=== PATIENT | male | born 1970 | race Caucasian/White ===

== ENCOUNTER 2019-03-12 10:57 | Emergency (ER) | payer OTHER ==
--- OUTSIDE RECORDS SUMMARY | 2019-03-12 11:12 | XMS REPORT | Continuity of Care Document ---
:1970 External Reference #:[id number] Author Name Nikko Solis DO MPH Address [facility], [address] [place] [address] Care Team Providers Name Role Phone Kt Shankar P.A. 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 Problems Description No Information Available Social History Type Date Description Comments Sex Unknown ETOH Use Consumes 1 beer per day Tobacco Use Start: Unknown Patient is a current smoker, smokes chew every day Recreational Drug Use Denies Drug Use Smoking Status Reviewed: 01/30/19 Patient is a current smoker, smokes chew every day Allergies, Adverse Reactions, Alerts Active Allergies Reaction Severity Comments Date Morphine And Related Urticaria 11/14/2016 Medications Active Medications SIG Qnty Indications Ordering Date Provider Oxycodone HCL si by mouth 90tabs Nikko Solis, 08/06/2018 10mg Tablets every 8 hours as BETO MICHELE directed chronic pain patient Meloxicam si by mouth Unknown 7.5mg Tablets every morning as directed chronic pain. take with food. Chlorpheniramine Maleate 1 by mouth every Unknown 4mg 4 hours as need Tablets Trazodone HCL si by mouth Unknown 100mg Tablets every night at bedtime as directed Amlodipine Besylate si by mouth Unknown 10mg every day Tablets Lisinopril every day Unknown 40mg Tablets Indomethacin si by mouth Unknown 50mg Capsules every 8 hours, prn Atorvastatin Calcium daily 30tabs Unknown 20mg Tablets Gemfibrozil Unknown 600mg Tablets Wellbutrin SR si by mouth Unknown 150mg Tablets twice a day as ER 12HR directed Venlafaxine HCL take 1 tablet by 30tabs Unknown 37.5mg mouth every day Tablets as directed chronic pain. Immunizations Description No Information Available Vital Signs Date Vital Result Comment 01/30/2019 10:34am BP Systolic 130 mmHg BP Diastolic 84 mmHg Heart Rate 86 /min Respiratory Rate 20 /min Height 70 inches 5'10" Weight 195.00 lb Pain Level 6 Pain at this time. Pain Level With Medicine 6 on average with meds Pain Level Without Medicine 9 without meds BMI (Body Mass Index) 28.0 kg/m2 01/01/2019 11:07am BP Systolic 134 mmHg BP Diastolic 82 mmHg Heart Rate 84 /min Respiratory Rate 20 /min Height 70 inches 5'10" Weight 196.00 lb Pain Level 6 Pain at this time. Pain Level With Medicine 5 on average with meds Pain Level Without Medicine 9 without meds BMI (Body Mass Index) 28.1 kg/m2 Results Description No Information Available Procedures Date Code Description Status 01/01/2019 55556 Omt 5-6 Body Regions Completed 12/04/2018 50599 Omt 3-4 Body Regions Completed 10/30/2018 95864 Omt 3-4 Body Regions Completed 10/30/2018 04771 Therapeutic, Prophylactic Or Diagnostic Injection Subq/Im Completed 10/05/2018 72519 Omt 3-4 Body Regions Completed 10/05/2018 41806 Therapeutic, Prophylactic Or Diagnostic Injection Subq/Im Completed 09/05/2018 80469 Omt 3-4 Body Regions Completed 09/05/2018 59591 Therapeutic, Prophylactic Or Diagnostic Injection Subq/Im Completed 09/01/201821128 Arthrocentesis Aspiration Inj, Small Joint/Bursa W US Completed Guidance 09/01/201878587 Arthrocentesis Aspiration Inj, Small Joint/Bursa W US Completed Guidance 08/06/2018 47871 Therapeutic, Prophylactic Or Diagnostic Injection Subq/Im Completed 08/06/2018 52149 Injection For Nerve Block, Other Peripheral Nerve Or Completed Branch 08/06/2018 Injection, Single Or Mutiple Trigger Points One Or Two Completed Muscles 08/06/201820405 Injection, Tendon Origin/Insertion Completed 08/06/201822938 Injection, Tendon Origin/Insertion Completed 08/06/201827300 Inject Tendon/Ligament Completed 08/06/201847179 Inject Tendon/Ligament Completed 08/06/201828502 Inject Tendon/Ligament Completed 08/06/201873409 Inject Tendon/Ligament Completed Medical Devices Description No Information Available Encounters Type Date Location Provider Dx Diagnosis Office Visit 01/01/2019 Main Office as Of Nikko Solis DO, G89.21 Chronic pain due 11:00a 05/25/13 MPH to trauma M54.2 Cervicalgia M99.01 Segmental and somatic dysfunction of cervical region M54.6 Pain in thoracic spine M99.02 Segmental and somatic dysfunction of thoracic region M54.5 Low back pain M99.03 Segmental and somatic dysfunction of lumbar region M53.3 Sacrococcygeal disorders, not elsewhere classified M99.04 Segmental and somatic dysfunction of sacral region M25.551 Pain in right hip M25.552 Pain in left hip 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 M99.05 Segmental and somatic dysfunction of pelvic region Office Visit 12/04/2018 11:30a Main Office as Nikko Solis G89.21 Chronic pain due Of 05/25/13 DO, MPH to trauma M54.2 Cervicalgia M99.01 Segmental and somatic dysfunction of cervical region M54.6 Pain in thoracic spine M99.02 Segmental and somatic dysfunction of thoracic region M54.5 Low back pain M99.03 Segmental and somatic dysfunction of lumbar region Z79.891 half-way (current) use of opiate analgesic Office Visit 10/30/2018 11:30a Main Office as Nikko Solis G89.21 Chronic pain due Of 05/25/13 DO, MPH to trauma M54.2 Cervicalgia M99.01 Segmental and somatic dysfunction of cervical region M54.6 Pain in thoracic spine M99.02 Segmental and somatic dysfunction of thoracic region M54.5 Low back pain M99.03 Segmental and somatic dysfunction of lumbar region R53.83 Other fatigue Z79.891 half-way (current) use of opiate analgesic Office Visit 10/05/2018 11:45a Main Office as Nikko Solis G89.21 Chronic pain due Of 05/25/13 DO, MPH to trauma M54.5 Low back pain M99.03 Segmental and somatic dysfunction of lumbar region M54.6 Pain in thoracic spine M99.02 Segmental and somatic dysfunction of thoracic region M54.2 Cervicalgia M99.01 Segmental and somatic dysfunction of cervical region R53.83 Other fatigue Z79.891 half-way (current) use of opiate analgesic Office Visit 09/05/2018 11:45a Main Office as Nikko Solis G89.21 Chronic pain due Of 05/25/13 DO, MPH to trauma M54.2 Cervicalgia M99.01 Segmental and somatic dysfunction of cervical region M54.6 Pain in thoracic spine M99.02 Segmental and somatic dysfunction of thoracic region M54.5 Low back pain M99.03 Segmental and somatic dysfunction of lumbar region M54.16 Radiculopathy, lumbar region R53.83 Other fatigue Z79.891 half-way (current) use of opiate analgesic Office Visit 09/01/2018 11:00a Main Office as Nikko Solis G89.21 Chronic pain due Of 05/25/13 DO, MPH to trauma M54.2 Cervicalgia M54.5 Low back pain M25.571 Pain in right ankle and joints of right foot Office Visit 08/06/2018 11:30a Main Office as Nikko Solis G89.21 Chronic pain due Of 05/25/13 DO, MPH to trauma M54.2 Cervicalgia M54.5 Low back pain M54.16 Radiculopathy, lumbar region M65.88 Other synovitis and tenosynovitis, other site M79.18 Myalgia, other site R53.83 Other fatigue 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 Assessments Date Code Description Provider 01/30/2019 G89.21 Chronic pain due to trauma Nikko Solis DO, MPH 01/30/2019 M54.5 Low back pain Nikko Solis DO, MPH 01/30/2019 M99.03 Segmental and somatic dysfunction of lumbar Nikko Solis DO, MPH region 01/30/2019 M54.6 Pain in thoracic spine Nikko Solis DO, MPH 01/30/2019 M99.02 Segmental and somatic dysfunction of Nikko Solis DO, MPH thoracic region 01/30/2019 M54.2 Cervicalgia Nikko Solis DO, MPH 01/30/2019 M99.01 Segmental and somatic dysfunction of Solis, Nikko, DO, MPH cervical region 01/30/2019 M25.551 Pain in right hip Solis, Nikko, DO, MPH 01/30/2019 M25.552 Pain in left hip Solis, Nikko, DO, MPH 01/30/2019 Z79.891 half-way (current) use of opiate analgesic Solis, Nikko , DO, MPH 01/30/2019 R53.83 Other fatigue Solis, Nikko, DO, MPH 01/01/2019 G89.21 Chronic pain due to trauma Solis, Nikko, DO, MPH 01/01/2019 M54.2 Cervicalgia Solis, Nikko, DO, MPH 01/01/2019 M99.01 Segmental and somatic dysfunction of Solis, Nikko, DO, MPH cervical region 01/01/2019 M54.6 Pain in thoracic spine Solis, Nikko, DO, MPH 01/01/2019 M99.02 Segmental and somatic dysfunction of Solis, Nikko, DO, MPH thoracic region 01/01/2019 M54.5 Low back pain Solis, Nikko, DO, MPH 01/01/2019 M99.03 Segmental and somatic dysfunction of lumbar Solis, Nikko, DO, MPH region 01/01/2019 M53.3 Sacrococcygeal disorders, not elsewhere Solis, Nikko, DO, MPH classified 01/01/2019 M99.04 Segmental and somatic dysfunction of sacral Solis, Nikko, DO, MPH region 01/01/2019 M25.551 Pain in right hip Solis, Nikko, DO, MPH 01/01/2019 M25.552 Pain in left hip Solis, Nikko, DO, MPH 01/01/2019 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 Solis, Nikko , DO, MPH 01/01/2019 M99.05 Segmental and somatic dysfunction of pelvic Solis, Nikko, DO, MPH region 12/04/2018 G89.21 Chronic pain due to trauma Solis, Nikko, DO, MPH 12/04/2018 M54.2 Cervicalgia Solis, Nikko, DO, MPH 12/04/2018 M99.01 Segmental and somatic dysfunction of Solis, Nikko, DO, MPH cervical region 12/04/2018 M54.6 Pain in thoracic spine Solis, Nikko, DO, MPH 12/04/2018 M99.02 Segmental and somatic dysfunction of Solis, Nikko, DO, MPH thoracic region 12/04/2018 M54.5 Low back pain Solis, Nikko, DO, MPH 12/04/2018 M99.03 Segmental and somatic dysfunction of lumbar Solis, Nikko, DO, MPH region 12/04/2018 Z79.891 half-way (current) use of opiate analgesic Solis, Nikko , DO, MPH 10/30/2018 G89.21 Chronic pain due to trauma Solis, Nikko, DO, MPH 10/30/2018 M54.2 Cervicalgia Solis, Nikko, DO, MPH 10/30/2018 M99.01 Segmental and somatic dysfunction of Solis, Nikko, DO, MPH cervical region 10/30/2018 M54.6 Pain in thoracic spine Solis, Nikko, DO, MPH 10/30/2018 M99.02 Segmental and somatic dysfunction of Solis, Nikko, DO, MPH thoracic region 10/30/2018 M54.5 Low back pain Solis, Nikko, DO, MPH 10/30/2018 M99.03 Segmental and somatic dysfunction of lumbar Solis, Nikko, DO, MPH region 10/30/2018 R53.83 Other fatigue Solis, Nikko, DO, MPH 10/30/2018 Z79.891 half-way (current) use of opiate analgesic Solis, Nikko , DO, MPH 10/05/2018 G89.21 Chronic pain due to trauma Solis, Nikko, DO, MPH 10/05/2018 M54.5 Low back pain Solis, Nikko, DO, MPH 10/05/2018 M99.03 Segmental and somatic dysfunction of lumbar Solis, Nikko, DO, MPH region 10/05/2018 M54.6 Pain in thoracic spine Solis, Nikko, DO, MPH 10/05/2018 M99.02 Segmental and somatic dysfunction of Solis, Nikko, DO, MPH thoracic region 10/05/2018 M54.2 Cervicalgia Solis, Nikko, DO, MPH 10/05/2018 M99.01 Segmental and somatic dysfunction of Solis, Nikko, DO, MPH cervical region 10/05/2018 R53.83 Other fatigue Solis, Nikko, DO, MPH 10/05/2018 Z79.891 half-way (current) use of opiate analgesic Solis, Nikko , DO, MPH 09/05/2018 G89.21 Chronic pain due to trauma Solis, Nikko, DO, MPH 09/05/2018 M54.2 Cervicalgia Solis, Nikko, DO, MPH 09/05/2018 M99.01 Segmental and somatic dysfunction of Solis, Nikko, DO, MPH cervical region 09/05/2018 M54.6 Pain in thoracic spine Solis, Nikko, DO, MPH 09/05/2018 M99.02 Segmental and somatic dysfunction of Solis, Nikko, DO, MPH thoracic region 09/05/2018 M54.5 Low back pain Solis, Nikko, DO, MPH 09/05/2018 M99.03 Segmental and somatic dysfunction of lumbar Solis, Nikko, DO, MPH region 09/05/2018 M54.16 Radiculopathy, lumbar region Solis, Nikko, DO, MPH 09/05/2018 R53.83 Other fatigue Solis, Nikko, DO, MPH 09/05/2018 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 Solis, Nikko , DO, MPH 09/01/2018 G89.21 Chronic pain due to trauma Solis, Nikko, DO, MPH 09/01/2018 M54.2 Cervicalgia Solis, Nikko, DO, MPH 09/01/2018 M54.5 Low back pain Solis, Nikko, DO, MPH 09/01/2018 M25.571 Pain in right ankle and joints of right foot Solis, Nikko , DO, MPH 08/06/2018 G89.21 Chronic pain due to trauma Solis, Nikko, DO, MPH 08/06/2018 M54.2 Cervicalgia Solis, Nikko, DO, MPH 08/06/2018 M54.5 Low back pain Solis, Nikko, DO, MPH 08/06/2018 M54.16 Radiculopathy, lumbar region Solis, Nikko, DO, MPH 08/06/2018 M65.88 Other synovitis and tenosynovitis, other Nikko Solis DO MPH site 08/06/2018 M79.18 Myalgia, other site Nikko Solis DO MPH 08/06/2018 R53.83 Other fatigue Nikko Solis DO MPH 08/06/2018 Z79.891 half-way (current) use of opiate analgesic Nikko Solis DO MPH Plan of Treatment Future Appointment(s):02/09/2019 1:15 pm - Nikko Solis DO MPH at Main Office as Of 05/25/1410 10:30 am - Nikko Solis DO MPH at Main Office as Of 05/25/1409 - Nikko Solis DO MPHG89.21 Chronic pain due to traumaComments:Chronic. Symptoms and complaints discussed and reviewed today. No significant changes in physical findings. Continue current medical pain management.M54.5 Low back painComments:Chronic. Symptoms and complaints discussed and reviewed today.No changes in physical findings. Patient is stable and comfortable when current medical therapy is rendered.M99.03 Segmental and somatic dysfunction of lumbar regionComments:Chronic. Symptoms and complaints discussed and reviewed today. Lumbar somatic dysfunctions noted warranting OMT. Continue current medical pain management and OMT. [id number]. OMT performed after evaluation. HVLA.M54.6 Pain in thoracic spineComments:Chronic.Symptoms and complaints discussed and reviewed today. No significant changes in physical findings. Continue current medical pain management.M99.02 Segmental and somatic dysfunction of thoracic regionComments:Chronic. Symptoms and complaints discussed and reviewed today. Notable somatic dysfunctions noted warranting OMT. Continue current medical pain management and OMT. [id number]. OMT performed after evaluation. HVLA.M54.2 CervicalgiaComments:Chronic. Symptoms and complaints discussed and reviewed today. No significant changes in physical findings. Continue current medical pain management.M99.01 Segmental and somatic dysfunction of cervical regionComments:Chronic. Symptoms and complaints discussed and reviewed today. Somatic dysfunctions noted warrantingOMT. Continue current medical pain management and OMT. [id number]. OMT performed.M25.551 Pain in right hipComments:Chronic. Symptoms and complaints discussed and reviewed today. No significant changes in physical findings. Continue current medical pain management.M25.552 Pain in left hipComments: Chronic. Symptoms and complaints discussed and reviewed today. No significant changes in physical findings. Continue current medical pain management.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New Labs:Urine Drug Screen, Ordered: 01/30/19Comments:Urine drug screen sample taken. Rapid Point of Care Cup was reviewed in office with patient. Will send out UDT Rapid to [facility] lab for confirmation testing. Urine Drug Testing (UDT) was done today to monitor opiate use and to monitor possible use of illicit substances. I will discuss the results at the next appointment from the [facility] lab.The following tests were ordered:6 AM, AMPH, PHILIP, NATE, BUP, CARIS, COCM, ETG, FENT, MCSHSG, OPI, OXY, PCP, TAPEN, XTSY, ZOLP. A urine drug test (UDT) was ordered for this patient and collected on site today. Creatinine has been ordered as well for specimen validity, not for kidney function. Preliminary UDT results are not final and should not be used to determine patient care or plan of treatment. Initially a qualitative immunoassay screen will be done. Any inconsistent or positive findings will be further tested with a more comprehensive quantitative confirmation LCMS study. It is part of the treatment process of prescribing controlled substances and is considered standard of care.R53.83 Other fatigueComments:Symptoms and complaints discussed and reviewed today. No significant changes in physical findings. Continue current medical pain management. B12 injection administered after patient evaluated. 1ml IM for fatigue. (See Consent for injection-B12 document for lot number and expiration date.)AllComments:Continue current medical pain management; injection therapy, osteopathic manipulation, PT / modalities, and consults as needed to manage chronic pain.Non - opioid pain management discussed and optionsdiscussed.Side effects discussed; anticipatory guidance given. Patient clearly understand and agree with all medical treatments and suggestions. All medicines prescribed are adequate and appropriate for this patient's complaint of pain, medical history, physical, and personal goals.Goals of Treatment are to provide adequate and appropriate multidisciplinary medical pain management to increase/ maintain patient's quality of life and functionality while maintaining satisfactory side effect profile andminimizing termite inspector end-organ damage. Importance of regular nutrition throughout the day discussed.Activity as toleratedContinue with PCP Functional Status Description No Information Available Mental Status Description No Information Available Referrals Description No Information Available
--- OUTSIDE RECORDS SUMMARY | 2019-03-12 11:12 | XMS REPORT | Continuity of Care Document ---
:1970 External Reference #:[id number] Author Name Nikko Solis DO, MPH Address [address] [place] [address], [address] [place] [address] Care Team Providers Name Role Phone Kt Shankar P.A. 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 Active Problems Provider Date Somatic dysfunction of lumbar region Nikko Solis DO MPH Onset: 02/09/2019 Low back pain Nikko Solis DO MPH Onset: 02/09/2019 Arthralgia of the ankle and/or foot Nikko Solis DO MPH Onset: 02/09/2019 Chronic postoperative pain Nikko Solis DO MPH Onset: 02/09/2019 Social History Type Date Description Comments Sex Unknown ETOH Use Consumes 1 beer per day Tobacco Use Start: Unknown Patient is a current smoker, smokes chew every day Recreational Drug Use Denies Drug Use Smoking Status Reviewed: 03/01/19 Patient is a current smoker, smokes chew every day Allergies, Adverse Reactions, Alerts Active Allergies Reaction Severity Comments Date Morphine And Related Urticaria 11/14/2016 Medications Active Medications SIG Qnty Indications Ordering Date Provider Oxycodone HCL si by mouth 100tabs Nikko Solis, 08/06/2018 10mg Tablets every 6-8 hours DO MPH as directed chronic pain patient Meloxicam si by mouth Unknown 7.5mg Tablets every morning as directed chronic pain. take with food. Chlorpheniramine Maleate 1 by mouth Unknown 4mg every 4 hours Tablets as need Trazodone HCL si by mouth Unknown 100mg [...] 12HR directed Venlafaxine HCL take 1 tablet 30tabs Unknown 37.5mg by mouth every Tablets day as directed chronic pain. Immunizations Description No Information Available Vital Signs Date Vital Result Comment 03/01/2019 11:00am BP Systolic 128 mmHg BP Diastolic 84 mmHg Heart Rate 82 /min Respiratory Rate 20 /min Height 70 inches 5'10" Pain Level 7 Pain at this time. Pain Level With Medicine 6 on average with meds Pain Level Without Medicine 9 without meds 02/09/2019 1:04pm BP Systolic 128 mmHg BP Diastolic 80 mmHg Heart Rate 78 /min Respiratory Rate 20 /min Height 70 inches 5'10" Weight 195.00 lb Pain Level 7 Pain at this time. Pain Level With Medicine 6 on average with meds Pain Level Without Medicine 9 without meds Pain Level After Procedure 4 BP Systolic Recheck 132 mmHg Pulse: 84 BP Diastolic Recheck 86 mmHg Pulse: 84 BMI (Body Mass Index) 28.0 kg/m2 Results Description No Information Available Procedures Date Code Description Status 02/09/2019 52558 Omt 1-2 Body Regions Completed 02/09/2019 06501 Arthrocentesis/Aspiration/Inj Of Major Joint Or Bursa W/ Completed Ultra 01/30/2019 42822 Omt 3-4 Body Regions Completed 01/30/2019 39847 Therapeutic, Prophylactic Or Diagnostic Injection Subq/Im Completed 01/01/2019 88846 Omt 5-6 Body Regions Completed 12/04/2018 62732 Omt 3-4 Body Regions Completed 10/30/2018 91697 Omt 3-4 Body Regions Completed 10/30/2018 67487 Therapeutic, Prophylactic Or Diagnostic Injection Subq/Im Completed 10/05/2018 52271 Omt 3-4 Body Regions Completed 10/05/2018 93463 Therapeutic, Prophylactic Or Diagnostic Injection Subq/Im Completed 09/05/2018 35876 Omt 3-4 Body Regions Completed 09/05/2018 28454 Therapeutic, Prophylactic Or Diagnostic Injection Subq/Im Completed Medical Devices Description No Information Available Encounters Type Date Location Provider Dx Diagnosis Office Visit 02/09/2019 Main Office as Nikko Solis G89.28 Other chronic 1:15p Of 05/25/13 DO, MPH postprocedural pain M25.571 Pain in right ankle and joints of right foot M54.5 Low back pain M99.03 Segmental and somatic dysfunction of lumbar region Office Visit 01/30/2019 10:30a Main Office as Nikko Solis G89.21 Chronic pain due Of 05/25/13 DO, MPH to trauma M54.5 Low back pain M99.03 Segmental and somatic dysfunction of lumbar region M54.6 Pain in thoracic spine M99.02 Segmental and somatic dysfunction of thoracic region M54.2 Cervicalgia M99.01 Segmental and somatic dysfunction of cervical region M25.551 Pain in right hip M25.552 Pain in left hip Z79.891 [facility] (current) use of opiate analgesic R53.83 Other fatigue Office Visit 01/01/2019 11:00a Main Office as Nikko Solis G89.21 [...] hip M25.552 Pain in left hip Z79.891 [facility] (current) use of opiate analgesic M99.05 Segmental [...] and somatic dysfunction of lumbar region Z79.891 [facility] (current) use of opiate analgesic Office Visit 10/30/2018 11:30a Main Office as Nikko Solis G89.21 Chronic pain due Of 05/25/13 DO, MPH to trauma M54.2 Cervicalgia M99.01 Segmental and somatic dysfunction of cervical region M54.6 Pain in thoracic spine M99.02 Segmental and somatic dysfunction of thoracic region M54.5 Low back pain M99.03 Segmental and somatic dysfunction of lumbar region R53.83 Other fatigue Z79.891 [facility] (current) use of opiate analgesic Office Visit 10/05/2018 11:45a Main Office as Nikko Solis, G89.21 Chronic pain due Of 05/25/13 DO, MPH to trauma M54.5 Low back pain M99.03 Segmental and somatic dysfunction of lumbar region M54.6 Pain in thoracic spine M99.02 Segmental and somatic dysfunction of thoracic region M54.2 Cervicalgia M99.01 Segmental and somatic dysfunction of cervical region R53.83 Other fatigue Z79.891 [facility] (current) use of opiate analgesic Office Visit 09/05/2018 11:45a Main Office as Nikko Solis G89.21 Chronic pain due Of 05/25/13 , MPH to trauma M54.2 Cervicalgia M99.01 Segmental and somatic dysfunction of cervical region M54.6 Pain in thoracic spine M99.02 Segmental and somatic dysfunction of thoracic region M54.5 Low back pain M99.03 Segmental and somatic dysfunction of lumbar region M54.16 Radiculopathy, lumbar region R53.83 Other fatigue 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 Assessments Date Code Description Provider 03/01/2019 G89.28 Other chronic postprocedural pain Nikko Solis DO, MPH 03/01/2019 M54.2 Cervicalgia Nikko Solis DO, MPH 03/01/2019 M99.01 Segmental and somatic dysfunction of Nikko Solis DO, MPH cervical region 03/01/2019 M54.6 Pain in thoracic spine Nikko Solis DO, MPH 03/01/2019 M99.02 Segmental and somatic dysfunction of Nikko Solis DO, MPH thoracic region 03/01/2019 M54.5 Low back pain Solis, Nikko, DO, MPH 03/01/2019 M99.03 Segmental and somatic dysfunction of lumbar Solis, Nikko, DO, MPH region 03/01/2019 M25.551 Pain in right hip Solis, Nkiko, DO, MPH 03/01/2019 M25.552 Pain in left hip Solis, Nikko, DO, MPH 03/01/2019 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 Solis, Nikko , DO, MPH 02/09/2019 G89.28 Other chronic postprocedural pain Solis, Nikko, DO, MPH 02/09/2019 M25.571 Pain in right ankle and joints of right foot Solis, Nikko , DO, MPH 02/09/2019 M54.5 Low back pain Solis, Nikko, DO, MPH 02/09/2019 M99.03 Segmental and somatic dysfunction of lumbar Solis, Nikko, DO, MPH region 01/30/2019 G89.21 Chronic pain due to trauma Solis, Nikko, DO, MPH 01/30/2019 M54.5 Low back pain Solis, Nikko, DO, MPH 01/30/2019 M99.03 Segmental and somatic dysfunction of lumbar Solis, Nikko, DO, MPH region 01/30/2019 M54.6 Pain in thoracic spine Solis, Nikko, DO, MPH 01/30/2019 M99.02 Segmental and somatic dysfunction of Solis, Nikko, DO, MPH thoracic region 01/30/2019 M54.2 Cervicalgia Solis, Nikko, DO, MPH 01/30/2019 M99.01 Segmental and somatic dysfunction of Solis, Nikko, DO, MPH cervical region 01/30/2019 M25.551 Pain in right hip Solis, Nikko, DO, MPH 01/30/2019 M25.552 Pain in left hip Solis, Nikko, DO, MPH 01/30/2019 Z79.891 [facility] (current) use of opiate analgesic Solis, Nikko [...] hip Solis, Nikko, DO, MPH 01/01/2019 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 Solis, Nikko [...] Solis, Nikko, DO, MPH region 12/04/2018 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 Solis, Nikko [...] fatigue Solis, Nikko, DO, MPH 10/30/2018 Z79.891 [facility] (current) use of opiate analgesic Solis, Nikko [...] fatigue Solis, Nikko, DO, MPH 10/05/2018 Z79.891 [facility] (current) use of opiate analgesic Solis, Nikko , DO, MPH 09/05/2018 G89.21 Chronic pain due to trauma Solis, Nikko, DO, MPH 09/05/2018 M54.2 Cervicalgia Solis, Nikko, DO, MPH 09/05/2018 M99.01 Segmental and somatic dysfunction of Solis, Nikko, DO, MPH cervical region 09/05/2018 M54.6 Pain in thoracic spine Nikko Solis DO MPH 09/05/2018 M99.02 Segmental and somatic dysfunction of Nikko Solis DO MPH thoracic region 09/05/2018 M54.5 Low back pain Nikko Solis DO MPH 09/05/2018 M99.03 Segmental and somatic dysfunction of lumbar Nikko Solis DO [facility] region 09/05/2018 M54.16 Radiculopathy, lumbar region Nikko Solis DO MPH 09/05/2018 R53.83 Other fatigue Nikko Solis DO MPH 09/05/2018 Z79.891 [facility] (current) use of opiate analgesic Nikko Solis DO MPH Plan of Treatment Future Appointment(s):03/27/2019 11:00 am - Nikko Solis DO MPH at Main Office as Of 05/25/1410 - Nikko Solis DO MPHG89.28 Other chronic postprocedural painComments:Chronic. Symptoms and complaints discussed and reviewed today. No significant changes in physical findings. Continue current medical pain management.M54.2 CervicalgiaComments:Chronic. Symptoms and complaints discussed and reviewed today. No significant changes in physical findings. Continue current medical pain management.M99.01 Segmental and somatic dysfunction of cervical regionComments:Chronic. Symptoms and complaints discussed and reviewed today. Somatic dysfunctions noted warrantingOMT. Continue current medical pain management and OMT. [id number]. OMT performed.M54.6 Pain in thoracic spineComments:Chronic.Symptoms and complaints discussed and reviewed today. No significant changes in physical findings. Continue current medical pain management.M99.02 Segmental and somatic dysfunction of thoracic regionComments:Chronic. Symptoms and complaints discussed and reviewed today. Notable somatic dysfunctions noted warranting OMT. Continue current medical pain management and OMT. [id number]. OMT performed after evaluation. HVLA.M54.5 Low back painComments:Chronic. Symptoms and complaints discussed and reviewed today.No changes in physical findings. Patient is stable and comfortable when current medical therapy is rendered.M99.03 Segmental and somatic dysfunction of lumbar regionComments:Chronic. Symptoms and complaints discussed and reviewed today. Lumbar somatic dysfunctions noted warranting OMT. Continue current medical pain management and OMT. [id number]. OMT performed after evaluation. HVLA.M25.551 Pain in right hipComments:Chronic. Symptoms and complaints discussed and reviewed today. No significant changes in physical findings. Continue current medical pain management.M25.552 Pain in left hipComments: Chronic. Symptoms and complaints discussed and reviewed today. No significant changes in physical findings. Continue current medical pain management.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New Labs:Urine Drug Screen, Ordered: 03/01/19Comments:Urine drug screen sample taken. Rapid Point of [...] controlled substances and is considered standard of care.AllComments:Continue current medical pain management; injection therapy, osteopathic [...] while maintaining satisfactory side effect profile andminimizing vermin exterminator end-organ damage. Importance of regular nutrition throughout the day discussed.Activity as toleratedContinue with PCP Functional Status Description No Information Available Mental Status Description No Information Available Referrals Description No Information Available
--- OUTSIDE RECORDS SUMMARY | 2019-03-12 11:12 | XMS REPORT | Continuity of Care Document ---
:1970 External Reference #:[id number] Author Name Nikko Solis DO, MPH Address [address] [place] [address], [address] [place] [address] Care Team Providers Name Role Phone Kt Shankar P.A. 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 Problems Provider Date Somatic dysfunction of lumbar region Nikko Solis DO, MPH Onset: 02/09/2019 Low back pain Nikko Solis DO, MPH Onset: 02/09/2019 Arthralgia of the ankle and/or foot Nikko Solis DO, MPH Onset: 02/09/2019 Chronic postoperative pain Nikko Solis DO, MPH Onset: 02/09/2019 Social History Type Date Description Comments Sex Unknown ETOH Use Consumes 1 beer per day Tobacco Use Start: Unknown Patient is a current smoker, smokes chew every day Recreational Drug Use Denies Drug Use Smoking Status Reviewed: 02/09/19 Patient is a current smoker, smokes chew every day Allergies, Adverse Reactions, Alerts Active Allergies Reaction Severity Comments Date Morphine And Related Urticaria 11/14/2016 Medications Active Medications SIG Qnty Indications Ordering Date Provider Oxycodone HCL si by mouth 90tabs Nikko Solis, 08/06/2018 10mg Tablets every 8 hours as DO, MPH directed chronic pain patient Meloxicam si by [...] Available Vital Signs Date Vital Result Comment 02/09/2019 1:04pm BP Systolic 128 mmHg BP [...] 84 BMI (Body Mass Index) 28.0 kg/m2 01/30/2019 10:34am BP Systolic 130 mmHg BP Diastolic 84 mmHg Heart Rate 86 /min Respiratory Rate 20 /min Height 70 inches 5'10" Weight 195.00 lb Pain Level 6 Pain at this time. Pain Level With Medicine 6 on average with meds Pain Level Without Medicine 9 without meds BMI (Body Mass Index) 28.0 kg/m2 Results Description No Information Available Procedures Date Code Description Status 01/30/2019 35987 Omt 3-4 Body Regions Completed 01/30/2019 53407 Therapeutic, Prophylactic Or Diagnostic Injection Subq/Im Completed 01/01/2019 15534 Omt 5-6 Body Regions Completed 12/04/2018 81220 Omt 3-4 Body Regions Completed 10/30/2018 71964 Omt 3-4 Body Regions Completed 10/30/2018 79440 Therapeutic, Prophylactic Or Diagnostic Injection Subq/Im Completed 10/05/2018 51843 Omt 3-4 Body Regions Completed 10/05/2018 83549 Therapeutic, Prophylactic Or Diagnostic Injection Subq/Im Completed 09/05/2018 84943 Omt 3-4 Body Regions Completed 09/05/2018 26890 Therapeutic, Prophylactic Or Diagnostic Injection Subq/Im Completed 09/01/2018 Arthrocentesis Aspiration Inj, Small Joint/Bursa W US Completed Guidance 09/01/2018 Arthrocentesis Aspiration Inj, Small Joint/Bursa W US Completed Guidance Medical Devices Description No Information Available Encounters Type Date Location Provider Dx Diagnosis Office Visit 01/30/2019 Main Office as Of Nikko Solis DO, G89.21 Chronic pain due 10:30a 05/25/13 MPH to trauma M54.5 Low back pain M99.03 Segmental and somatic dysfunction of lumbar region M54.6 Pain in thoracic spine M99.02 Segmental and somatic dysfunction of thoracic region M54.2 Cervicalgia M99.01 Segmental and somatic dysfunction of cervical region M25.551 Pain in right hip M25.552 Pain in left hip 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 R53.83 Other fatigue Office Visit 01/01/2019 11:00a Main Office as Nikko Soils G89.21 Chronic pain due Of 05/25/13 DO, [...] hip M25.552 Pain in left hip 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 M99.05 Segmental [...] and somatic dysfunction of lumbar region Z79.891 nursing home (current) use of opiate analgesic Office Visit 10/30/2018 11:30a Main Office as Nikko Solis G89.21 Chronic pain due Of 05/25/13 DO, MPH to trauma M54.2 Cervicalgia M99.01 Segmental and somatic dysfunction of cervical region M54.6 Pain in thoracic spine M99.02 Segmental and somatic dysfunction of thoracic region M54.5 Low back pain M99.03 Segmental and somatic dysfunction of lumbar region R53.83 Other fatigue 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 Office Visit 10/05/2018 11:45a Main Office as SolisNikko nicholas, G89.21 Chronic pain due Of 05/25/13 DO, MPH to trauma M54.5 Low back pain M99.03 Segmental and somatic dysfunction of lumbar region M54.6 Pain in thoracic spine M99.02 Segmental and somatic dysfunction of thoracic region M54.2 Cervicalgia M99.01 Segmental and somatic dysfunction of cervical region R53.83 Other fatigue Z79.891 nursing home (current) use of opiate analgesic Office Visit 09/05/2018 11:45a Main Office as Nikko Solis, G89.21 Chronic pain due Of 05/25/13 DO, MPH to trauma M54.2 Cervicalgia M99.01 Segmental and somatic dysfunction of cervical region M54.6 Pain in thoracic spine M99.02 Segmental and somatic dysfunction of thoracic region M54.5 Low back pain M99.03 Segmental and somatic dysfunction of lumbar region M54.16 Radiculopathy, lumbar region R53.83 Other fatigue 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 Office Visit 09/01/2018 11:00a Main Office as Nikko Solis, G89.21 Chronic pain due Of 05/25/13 DO, MPH to trauma M54.2 Cervicalgia M54.5 Low back pain M25.571 Pain in right ankle and joints of right foot Assessments Date Code Description Provider 02/09/2019 G89.28 Other chronic postprocedural pain Solis, Nikko, DO, MPH 02/09/2019 M25.571 Pain in right ankle and joints of right foot Solis, Nikko , DO, MPH 02/09/2019 M54.5 Low back pain Solis, Nikko, DO, MPH 02/09/2019 M99.03 Segmental and somatic dysfunction of lumbar SolisDelgado nicholasph, DO, MPH region 01/30/2019 G89.21 Chronic pain [...] hip Solis, Nikko, DO, MPH 01/30/2019 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 Solsi, Nikko , DO, MPH 01/30/2019 R53.83 Other [...] hip Solis, Nikko, DO, MPH 01/01/2019 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 Solis, Nikko [...] Solis, Nikko, DO, MPH region 12/04/2018 Z79.891 nursing home (current) use of opiate analgesic Solis, Nikko [...] fatigue Solis, Nikko, DO, MPH 10/30/2018 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 Solis, Nikko [...] fatigue Solis, Nikko, DO, MPH 10/05/2018 Z79.891 nursing home (current) use of opiate analgesic Solis, Nikko [...] fatigue Solis, Nikko, DO, MPH 09/05/2018 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 Symptoms and complaints discussed and reviewed today. No significant changes in physical findings. Continue current medical pain management.M25.571 Pain in right ankle and joints of right footComments:Injection therapy today - soft tissue / musculoskeletal. Informed consent given/refusal reviewed. See procedure sheet. Injection therapy performed under musculoskeletal ultrasound for demarcation of pertinent structure for needle guidance for injection.M54.5 Low back painComments: Chronic. Symptoms and complaints discussed and reviewed today. Lumbar somatic dysfunctions noted warranting OMT. Continue current medical pain management and OMT.M99.03 Segmental and somatic dysfunction of lumbar regionComments: Chronic. Symptoms and complaints discussed and reviewed today. Lumbar somatic dysfunctions noted warranting OMT. Continue current medical pain management and OMT. [id number]. OMT performed after evaluation. HVLA.AllComments:Continue current medical pain management; injection therapy, osteopathic [...] maintaining satisfactory side effect profile andminimizing termite control representative end-organ damage. Importance of regular nutrition throughout the day discussed.Activity as toleratedContinue with PCP Functional Status Description No Information Available Mental Status Description No Information Available Referrals Description No Information Available
[2019-03-12 11:33] VITALS: BP 171/105
--- NOTE | 2019-03-12 12:51 | UC ---
Respiratory Complaint HPI - HPI Summary HPI Summary: Pt presents with c/o nasal congestion, sinus pressure an dpain, cough, sob and wheezing X 1 week. - History of Current Complaint Chief Complaint: UCGeneralIllness Stated Complaint: CONGESTION,FEVER,COUGH Time Seen by Provider: 03/12/19 12:40 Hx Obtained From: Patient Onset/Duration: Gradual Onset, Lasting Weeks, Still Present Timing: Constant Severity Initially: Mild Severity Currently: Moderate Pain Intensity: 4 Character: Cough: Productive Aggravating Factors: Exertion, Deep Breaths, Recumbent Position Alleviating Factors: Nothing Associated Signs And Symptoms: Positive: Wheezing, URI, Nasal Congestion - Risk Factors Pulmonary Embolism Risk Factors: Negative Cardiac Risk Factors: Negative Pseudomonas Risk Factors: Negative Tuberculosis Risk Factors: Negative - Allergies/Home Medications Allergies/Adverse Reactions: Allergies Allergy/AdvReac Type Severity Reaction Status Date / Time morphine Allergy Itching Verified 03/12/19 11:27 Home Medications: Home Medications Atorvastatin* [Lipitor 40 MG*] 1 tab PO QAM 03/12/19 [History Confirmed 03/12/19 ] Gemfibrozil TAB* [Lopid TAB*] 1 tab PO BID 03/12/19 [History Confirmed 03/12/19 ] Oxycodone TAB(NF) [Oxycodone HCl 10 MG] 1 tab PO TID 03/12/19 [History Confirmed 03/12/19] Venlafaxine HCl [Effexor XR-] 1 tab PO QAM 03/12/19 [History Confirmed 03/12/19] buPROPion SR TAB* [Wellbutrin SR TAB*] 450 mg PO DAILY 03/12/19 [History Confirmed 03/12/19] PMH/Surg Hx/FS Hx/Imm Hx Previously Healthy: Yes - Surgical History Surgical History: Yes Surgery Procedure, Year, and Place: RIGHT KNEE 2002, [place]. RT ANKLE FUSION 06/08 AND 09/05-[facility] [place] - Family History Known Family History: Positive: Cardiac Disease - Social History Occupation: Unemployed Lives: With Family Alcohol Use: None Alcohol Amount: 16 PER WEEK Substance Use Type: None Smoking Status (MU): Never Smoked Tobacco Have You Smoked in the Last Year: No Review of Systems All Other Systems Reviewed And Are Negative: Yes Constitutional: Positive: Chills, Fatigue Skin: Positive: Negative Eyes: Positive: Negative ENT: Positive: Sinus Congestion, Sinus Pain/Tenderness Respiratory: Positive: Shortness Of Breath, Cough, Other - wheezing Cardiovascular: Positive: Negative Gastrointestinal: Positive: Negative Genitourinary: Positive: Negative Neurovascular: Positive: Negative Musculoskeletal: Positive: Myalgia Neurological: Positive: Negative Psychological: Positive: Negative Is Patient Immunocompromised?: No Physical Exam Triage Information Reviewed: Yes Appearance: Ill-Appearing Vital Signs: Initial Vital Signs Temp 97.7 F 03/12/19 11:31 Pulse 86 03/12/19 11:31 Resp 16 03/12/19 11:31 BP 171/105 03/12/19 11:31 Pulse Ox 100 03/12/19 11:31 Vital Signs Reviewed: Yes Eye Exam: Normal ENT: Positive: Nasal congestion, Sinus tenderness Dental Exam: Normal Neck exam: Normal Respiratory: Positive: Wheezing Cardiovascular Exam: Normal Musculoskeletal Exam: Normal Neurological Exam: Normal Psychological Exam: Normal Skin Exam: Normal Respiratory Course/Dx - Differential Dx/Diagnosis Differential Diagnosis/HQI/PQRI: Bronchitis, Influenza Provider Diagnosis: Sinusitis, Wheezing on both sides of chest Discharge ED - Sign-Out/Discharge Documenting (check all that apply): Patient Departure All imaging exams completed and their final reports reviewed: No Studies - Discharge Plan Condition: Stable Disposition: HOME Prescriptions: Albuterol 2.5MG/3ML (0.083%)* [Ventolin 2.5 MG/3 ML NEB.SLIME*] 2.5 mg INH Q4H PRN #1 neb.slime PRN Reason: Sob/Wheezing Albuterol HFA INHALER* [Ventolin HFA Inhaler*] 1 - 2 puff INH Q4H PRN #1 mdi PRN Reason: Sob/Wheezing Amoxicillin PO (*) [Amoxicillin 875 MG (*)] 875 mg PO Q12H #20 tab predniSONE TAB* [Deltasone 10 MG TAB*] 10 mg PO DAILY #3 tab predniSONE TAB* [Deltasone 20 MG TAB*] 60 mg PO DAILY #12 tab Patient Education Materials: Sinusitis (ED), Wheezing (ED) Referrals: Julio Cesar Shankar PA [Primary Care Provider] - If Needed - Billing Disposition and Condition Condition: STABLE Disposition: Home
== END 2019-03-12 13:04 | disposition home or self-care (01) ==
LOC: UCCORT 10:57
DX: J32.9 Chronic sinusitis, unspecified (principal); R06.2 Wheezing; R53.83 Other fatigue; Z88.5 Allergy status to narcotic agent
CPT/HCPCS: 99212; G0463